=== PATIENT | female | born 1960 | race African-American/Black ===

== ENCOUNTER 2020-11-09 08:13 | Inpatient (IN) | payer OTHER ==
[2020-11-09] VITALS (20 sets, daily range): BP systolic 128–180; BP diastolic 57–103
[~2020-11-09] VITALS: Ht 167.6 cm; Wt 96.4 kg
--- NOTE | ~2020-11-09 | EEG ---
[facility] [place] [address] ELECTROENCEPHALOGRAM Name: LAURITA FAYE Room #: 239-P ADM IN M.R.#: [id number] Admission: 11/09/20 Attend Phys: Fifi Velasco Discharge: Date of : 58 Report #: [id number] THIS REPORT FOR: //name// DATE OF SERVICE: 11/09/2020 This patient is being evaluated for the possibility of seizure. EEG was done by placing the electrodes by standard 10-20 system of electrode placement. Both referential and sequential montages were used for recording. Background activity is about 9 Hz and 30 microvolt. The patient went to sleep that is associated with bilateral slowing and vertex sharp waves. Photic stimulation is unremarkable. Throughout the record, no active epileptiform activity was noticed. IMPRESSION: This patient's EEG is unremarkable. Thank you very much for this referral. By: [id number] Param Rogers MD /nt
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
[2020-11-09 08:27] LABS: ABSOLUTE NEUTROPHILS 4.2 thou/uL (1.4-8.2); BASOPHILS 0.6 % (0.0-2.0); EOSINOPHILS 0.8 % (0.0-3.0); HEMATOCRIT 39.9 % (37.0-47.0); HEMOGLOBIN 13.6 gm/dL (12.0-15.0); LYMPHOCYTES 17.5 % (24.0-44.0); MCH 37.2 pg (26.0-34.0); MCV 109.5 fL (80.0-100.0); MONOCYTES 4.3 % (1.0-8.0); PLATELET COUNT 249 thou/uL (150-400); POLYS 76.8 % (36.0-66.0); RBC 3.65 mil/uL (4.20-5.00); RDW 15.3 % (10.5-14.5); WBC 5.4 thou/uL (4.0-11.0)
[2020-11-09 08:43] LABS: CALCIUM 8.8 mg/dL (8.5-10.1); CREATININE 0.9 mg/dL (0.6-1.0); POTASSIUM 3.8 mmol/L (3.5-5.1)
[2020-11-09 08:48] LABS: ALBUMIN 4.4 g/dL (3.4-5.0); TOTAL PROTEIN 8.2 g/dL (6.4-8.2)
[2020-11-09 08:48] LABS: URINE BILIRUBIN NEGATIVE (Negative); URINE BLOOD TRACE (Negative); URINE CLARITY CLEAR; URINE COLOR YELLOW; URINE GLUCOSE-RANDOM* NEGATIVE (Negative); URINE KETONES NEGATIVE (Negative); URINE LEUKOCYTES-REFLEX NEGATIVE (Negative); URINE NITRITE-REFLEX NEGATIVE (Negative); URINE PROTEIN (DIPSTICK) NEGATIVE (Negative); URINE SPECIFIC GRAVITY 1.015 (1.005-1.035); URINE UROBILINOGEN 0.2 E.U./dl (0.2-1.0)
[2020-11-09 08:57] LABS: AMP/METHAMP Negative (Negative); BARBITURATES Negative (Negative); BENZODIAZEPINES POSITIVE (Negative); COCAINE Negative (Negative); METHADONE Negative (Negative); OPIATES Negative (Negative); PCP Negative (Negative)
[2020-11-09 11:21] LABS: ANISOCYTOSIS 1+; MACROCYTES 2+; PLATELET ESTIMATE NORMAL
[2020-11-09 11:23] LABS: PHOSPHORUS 3.7 mg/dL (2.6-4.7)
[2020-11-09] MEDS ORDERED: NORVASC 2.5 MG2.5 M1 PO (12:01)
[2020-11-09] MEDS ORDERED: CENTRUM SILVER1 EAC5 PO (12:02)
[2020-11-09] MEDS ORDERED: FUROSEMIDE 80 M80 M1 PO (12:02)
[2020-11-09] MEDS ORDERED: BACLOFEN20 MG PO (12:02)
[2020-11-09] MEDS ORDERED: HIGH POTENCY I134 MG PO (12:03)
[2020-11-09] MEDS ORDERED: GRALISE600 MG PO (12:04)
[2020-11-09] MEDS ORDERED: MELATONIN3 M1 PO (12:05)
[2020-11-09] MEDS ORDERED: METHOCARBAMOL750 MG PO (12:05)
[2020-11-09] MEDS ORDERED: ZOLOFT 50 MG TA50 MG PO (12:06)
[2020-11-09] MEDS ORDERED: POTASSIUM20 PO (12:06)
[2020-11-09] MEDS ORDERED: OXYCODONE HCL5 MG PO (12:06)
[2020-11-09] MEDS ORDERED: VITAMINE B-1100 MG PO (12:07)
[2020-11-09] MEDS ORDERED: SODIUM CHLORIDE1 G2 PO (12:07)
[2020-11-09] MEDS ORDERED: VITAMIN A2400 MCG PO (12:08)
[2020-11-09] MEDS ORDERED: TRI TOP (12:08)
[2020-11-09] MEDS ORDERED: [UNRECOGNIZED DRUG - OTHER] TOP (12:08)
--- NOTE | 2020-11-09 14:28 | NUR ---
D/C VITAL SIGNS FROM ER TO ICU: HR 109, BP 142/75, PULSE OXIMETRY 92% RA, RR 17, 0/10 PAIN.
[2020-11-10] VITALS (29 sets, daily range): BP systolic 128–156; BP diastolic 55–101
--- NOTE | 2020-11-10 00:42 | NUR ---
PT'S COVID TESTING HX IS FOLLOWS: 2019: PT TEST POSITIVE FOR COVID AND MANAGED SYMPTOMS AT HOME IN [place] WITH HER WHOM ALSO TESTED POSITIVE FOR COVID. AUGUST 2020: PT AND HER WERE MOVING TO [place] FROM [place]. THEY BOTH GOT PCR TESTS BEFORE LEAVING [place]. AFTER THEY ARRIVED TO THEY GOT THEIR RESULTS; MS FAYE TESTED POSITIVE AND MR FAYE TESTED NEGATIVE. THE PT THEN WENT TO A LAB TO GET A RAPID TEST DONE. THIS RESULTED A NEGATIVE. THE PT WAS TOLD THAT THE PCR WAS MOST LIKEY A FALSE POSITVE. OCTOBER 2020 (THIS HOSPITAL ADMISSION): PT WAS TESTED AT [facility] FOR COVID AND IT WAS POSITIVE. PT DENIES ANY COVID SYMPTOMS AND CLOSE CONTACT WITH ANYONE SICK OR WITH A KNOWN COVID DIAGNOSIS.
[2020-11-10] MEDS ORDERED: NORVASC10 MG PO (05:53)
[2020-11-10] MEDS ORDERED: LIPITOR10 MG PO (05:54)
[2020-11-10] MEDS ORDERED: ZOLOFT25 MG PO (05:55)
[2020-11-10] MEDS ORDERED: DARIFENACIN ER7.5 MG PO (05:55)
--- NOTE | 2020-11-10 06:58 | EKG ---
[place] [address] [facility] [place] [address] ELECTROCARDIOGRAM REPORT Name: NEYDA,LAURITA JACEY Room #: 239-P ADM IN M.R.#: [id number] Admission: 11/09/20 Attend Phys: Fifi Horton Discharge: Date of : 58 Report #: [id number] [facility] ED Test Date: 2020-11-09 Test Time: 08:28:31 Pat Name: LAURITA FAYE Department: Room: 239 Gender: F Anodizer: JERONIMO : 1960 Requested By: Katherine Garza Order Number: [id number] MD: Jesus Erazo Measurements Intervals [place] Rate: 116 P: 68 TX: 146 QRS: 28 QRSD: 84 T: 34 QT: 342 QTc: 476 Interpretive Statements Sinus tachycardia Probable left atrial enlargement Abnormal inferior Q waves Borderline prolonged QT interval Baseline wander in lead(s) V2 No previous ECG available for comparison Electronically Signed On 11-10-2020 6:58:17 QUILTING MACHINE OPERATOR by Jesus Erazo [email or web address] <ELECTRONICALLY SIGNED> By: Jesus Erazo MD, [facility] 11/10/20 [id number] Jesus Erazo MD, FACC /EPI
--- NOTE | 2020-11-10 11:35 | NUR ---
chart review. unable to visit with pt rt resting. cm spoke with her spouse laura chinchilla, he reported " independent, just moved here in end of aug 2020, live in condo, 2 steps enter, 20 to lower level, we have everything on 1st floor. no dme, manage own medication, only drives when she is sober. had rehab in past when [place] for [place]. anticipate when ready to dc, home with .
--- NOTE | 2020-11-10 16:38 | NUR ---
PT RESTING COMFORTABLY IN BED TODAY. SCORING ZERO ON CIWA. NO S/S OF DT'S. PT OFF OF ENHANCED PRECAUTIONS. PT AFEBRILE, NEUROLOGICALLY INTACT, ADEQUATE UOP, 1 BM, ADEQUATE APPETITE. PT WILL BE TRANSFERED TO CCU ROOM 218. PT HAS BEEN UPDATED AND EDUCATED ON CONDITION AND POC. PT PROGRESSING TOWARDS POC.
--- NOTE | 2020-11-10 17:41 | NUR ---
RECEIVED PT FROM THE ICU. PT IS AXOX4, PLEASANT. 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 PT IS RESTING COMFORTABLY IN BED. UP AD EDNA TO TOILET. STATES SHE "HOPES SHE DISCHARGES TOMORROW." DID PT EDUCATION ON VISITING HOURS. NO CONCERNS AT THIS TIME.
[2020-11-11 00:06] VITALS: BP 151/94
--- NOTE | 2020-11-11 03:44 | NUR ---
Assumed pt care at 1900. Pt is alert and oriented. No sign of distress noted. Pt is ambulatory. Assessment completed and documented. Pt is ambulatory. Scheduled meds administered to pt. Pt is stable through the night. No acute event. Continue to monitor. No further needs at this time.
[2020-11-11 04:21] LABS: ALBUMIN 3.9 g/dL (3.4-5.0); CREATININE 0.8 mg/dL (0.6-1.0); MAGNESIUM 2.2 mg/dL (1.8-2.4); POTASSIUM 3.4 mmol/L (3.5-5.1); TOTAL BILIRUBIN 0.8 mg/dL (0.2-1.0); TOTAL PROTEIN 7.3 g/dL (6.4-8.2)
[2020-11-11 05:48] VITALS: BP 146/92
[2020-11-11 07:50] VITALS: BP 134/73
[2020-11-11] MEDS ORDERED: ABILIFY 2 MG2 M1 PO (08:27)
[2020-11-11] MEDS ORDERED: CHLORDIAZEPOXID25 M1 PO (08:27)
[2020-11-11 10:41] VITALS: BP 134/73
--- NOTE | 2020-11-11 11:19 | NUR ---
PT IS AXOX4, PLEASANT. PT IS KNOWLEDGABLE ABOUT HER MEDICATIONS AND ASKED QUESTIONS; NURSE CONDUCTED RX EDUCATION. VSS, AFEBRILE. PT RESTING COMFORTABLY IN BED. DR KUMAR CONSULTED, DR STAHL CONSULTED. POC IS TO DISCHARGE HOME, FOLLOW UP APPT. DISCHARGE WITH VIE PERSONAL VEHICLE. DISCHARGE EDUCATION CONDUCTED ON MEDICATIONS, FOLLOW UP APPT. NO CONCERNS AT THIS TIME.
== END 2020-11-11 11:43 | disposition home or self-care (01) | DRG 100 ==
LOC: ER 08:13 → EROBS 11:18 → ICU 11:18 → 2N 11-10 17:11
PROVIDERS: Emergency Medicine; ADMIT Hospitalist; ATTEND Hospitalist
DX: R56.9 Unspecified convulsions (principal); U07.1 COVID-19; F10.231 Alcohol dependence with withdrawal delirium; Y90.9 Presence of alcohol in blood, level not specified; D75.89 Other specified diseases of blood and blood-forming organs; I10 Essential (primary) hypertension; E66.9 Obesity, unspecified; G47.00 Insomnia, unspecified; F31.9 Bipolar disorder, unspecified; G89.29 Other chronic pain; Z68.34 Body mass index [BMI] 34.0-34.9, adult; Z79.899 Other long term (current) drug therapy; Z28.89 Immunization not carried out for other reason
CPT/HCPCS: 10078; 10081